=== PATIENT | male | born 1960 ===

== ENCOUNTER 2022-01-18 06:10 | Day surgery (SDC) | payer OTHER | END 2022-01-18 12:50 | disposition home or self-care (01) | LOC: AMB-ENDOS 06:10 → CIR.AMB 13:15 | PROVIDERS: ATTEND Colon & Rectal Surgery | DX: D12.3 Benign neoplasm of transverse colon (principal); Z86.010 Personal history of colon polyps; E78.5 Hyperlipidemia, unspecified; I10 Essential (primary) hypertension; Z20.822 Contact with and (suspected) exposure to COVID-19 ==